=== PATIENT | female | born 1990 | race Hispanic/Latino ===

== ENCOUNTER 2023-05-25 17:04 | Emergency (ER) | payer SELFPAY ==
[2023-05-25] MEDS ORDERED: HYDROcodone/Acetaminophen 5/325 mg Tablet ONE (19:33)
[2023-05-25] MEDS ORDERED: Dexamethasone 4 MG TAB ONE (19:34)
[2023-05-25 19:40] LABS: Anion Gap 12 mmol/L (10-20); BUN (Urea Nitrogen) 9 mg/dL (7.0-18.7); Calc. Creatinine Clearance 0 mL/min (70-130); Calcium 8.8 mg/dL (7.8-10.44); Carbon Dioxide 22 mmol/L (22-29); Chloride 104 mmol/L (98-107); Estimated GFR 125; Glucose 180 mg/dL (70-105); Potassium 3.5 mmol/L (3.5-5.1); Sodium 134 mmol/L (136-145)
[2023-05-25 19:51] LABS: Bilirubin Neg (Negative); Blood, Urine 10 (Negative); Glucose, Urine (Dipstick) >=1000 mg/dL (Negative); Ketone, Urine Negative (Negative); Leukocyte 500 (Negative); Nitrite Positive (Negative); Protein, Urine (Dipstick) Negative (Neg-Trace); Specific Gravity, Urine 1.015 (1.005-1.030); Urobilinogen Normal mg/dL (Less than 2)
[2023-05-25 19:54] LABS: Clarity Slightly Cloudy (Clear)
[2023-05-25 20:04] LABS: CAUTI Indications for Culture Pregnancy; RBC/HPF 0-3 HPF (0-3); WBC/HPF 21-50 HPF (0-3)
[2023-05-25 20:05] LABS: Bacteria/HPF 3+ HPF (None Seen); Squamous Epithelial 0-3 HPF (0-3)
[2023-05-25 20:06] LABS: Urine Culture Reflex Yes Yes
[2023-05-25] MEDS ORDERED: Nitrofurantoin Monohyd/M-Cryst 100 MG CAP PO SCH (20:45)
== END 2023-05-25 20:57 | disposition home or self-care (01) ==
LOC: CSHERS 17:04
DX: O23.41 Unspecified infection of urinary tract in pregnancy, first trimester (principal); O99.891 Other specified diseases and conditions complicating pregnancy; M54.30 Sciatica, unspecified side; M79.671 Pain in right foot; M79.672 Pain in left foot; Z3A.12 12 weeks gestation of pregnancy
CPT/HCPCS: 36416; 80048; 81001; 87077; 87086; 87186; 99283; J8540

== ENCOUNTER 2023-11-10 05:15 | Inpatient (IN) | payer OTHER ==
[2023-11-09 11:33] LABS: Hematocrit 36.8 % (34.9-44.5); Hemoglobin 12.9 g/dL (12.0-15.5); Platelet Count 248 10x3/uL (150-450)
[2023-11-09 12:08] LABS: HBSAg Index 0.19 S/CO (0-0.99); Hep B Surf Ag Non-Reactive S/CO (NonReactive)
[2023-11-09 12:09] LABS: Syphilis Antibody Nonreactive (Nonreactive); Syphilis Antibody Index 0.05 S/CO (<1.00 Non-Reactive)
[2023-11-10 05:16] VITALS: BMI 32.9
[2023-11-10] MEDS ORDERED: Bicitra 30 ML UDCUP PO PRN (05:20)
[2023-11-10] MEDS ORDERED: Azithromycin 500 MG in Sodium Chloride 0.9% 250 ML 250 ML IVPB SCH (05:20)
[2023-11-10] MEDS ORDERED: hydrALAZINE 20 MG/ML VIAL SLOW IVP PRN ×2 (05:20→12:41)
[2023-11-10] MEDS ORDERED: Promethazine HCl 25 MG/ML VIAL IM PRN ×3 (05:20→12:41)
[2023-11-10] MEDS ORDERED: Methylergonovine 0.2 MG/ML VIAL IM PRN (05:20)
[2023-11-10] MEDS ORDERED: Carboprost 250 MCG/ML AMP IM PRN (05:20)
[2023-11-10] MEDS ORDERED: Lactated Ringer's 1,000 ML IV SCH (05:20)
[2023-11-10] MEDS ORDERED: Tranexamic Acid 1,000 MG/10 ML VIAL IVP PRN (05:20)
[2023-11-10] MEDS ORDERED: Ondansetron PF 4 MG/2 ML Vial IVP PRN ×3 (05:20→12:41)
[2023-11-10] MEDS ORDERED: Oxytocin 30 units/NS 500 ML 500 ML IV SCH (05:20)
[2023-11-10] MEDS ORDERED: Misoprostol 200 MCG TAB PR PRN (05:20)
[2023-11-10] MEDS ORDERED: Diphenoxylate HCl/Atropine Tablet PO PRN (05:20)
[2023-11-10] MEDS ORDERED: Famotidine/PF 20 mg/2ml Vial SLOW IVP PRN (05:20)
[2023-11-10] MEDS ORDERED: ePHEDrine Sulfate 50 MG/10 ML VIAL ONE (08:00)
[2023-11-10] MEDS: CEFAZOLIN 2 GM in Sodium Chloride 0.9% 100 ML IVPB SCH (08:11)
[2023-11-10] MEDS ORDERED: fentaNYL 50 mcg/mL 1 mL Vial SLOW IVP PRN (09:44)
[2023-11-10] MEDS ORDERED: Naloxone HCl 0.4 mg/ml Vial IVP PRN ×2 (09:44)
[2023-11-10] MEDS ORDERED: Ketorolac Tromethamine 30 MG (1 mL) VIAL IVP PRN (09:44)
[2023-11-10] MEDS ORDERED: Promethazine HCl 25 MG SUPP PR PRN (09:44)
[2023-11-10] MEDS ORDERED: diphenhydrAMINE 50 MG/ML VIAL IVP PRN (09:44)
[2023-11-10] MEDS ORDERED: Moisturizing Cream (Eucerin) 113 GM JAR TOP PRN (09:44)
[2023-11-10] MEDS ORDERED: Meperidine HCl/PF 25 MG (1 mL) VIAL SLOW IVP PRN (09:44)
[2023-11-10] MEDS ORDERED: Ketorolac Tromethamine 30 MG (1 mL) VIAL IVP SCH (09:45)
[2023-11-10] MEDS ORDERED: Communication Order-Pharmacy FS SCH (09:45)
[2023-11-10 11:52] LABS: Hematocrit 31.3 % (34.9-44.5); Hemoglobin 10.9 g/dL (12.0-15.5); Mean Corpuscular HGB CONC 34.8 g/dL (32.0-36.0); Mean Corpuscular Hemoglobin 28.6 pg (27.0-33.0); Mean Corpuscular Volume 82.2 fl (81.6-98.3); Mean Platelet Volume 11.1 fl (7.4-10.4); Platelet Count 209 10x3/uL (150-450); RBC Distribution Width 12.5 % (11.5-14.5); Red Blood Cell (RBC) Count 3.81 10x6/uL (3.90-5.03); White Blood Cell (WBC) Count 10.7 10x3/uL (3.5-10.5)
[2023-11-10] MEDS: Ondansetron PF 4 MG/2 ML Vial IVP PRN (11:53)
[2023-11-10] MEDS ORDERED: Lanolin Ointment 7 GM TUBE TOP PRN (12:41)
[2023-11-10] MEDS ORDERED: Bisacodyl 10 MG SUPP PR PRN (12:41)
[2023-11-10] MEDS: diphenhydrAMINE 25 MG CAP PO PRN (14:33)
[2023-11-10] MEDS: Ketorolac Tromethamine 30 MG (1 mL) VIAL IVP SCH (14:33)
[2023-11-10] MEDS: Morphine PF 10 MG/10 ML VIAL ONE (16:48)
[2023-11-10] MEDS: Dexamethasone 4 mg/ml Vial ONE (16:48)
[2023-11-10] MEDS: Ondansetron PF 4 MG/2 ML Vial ONE (16:48)
[2023-11-10] MEDS: Ketorolac Tromethamine 30 MG (1 mL) VIAL ONE ×2 (16:49)
[2023-11-10] MEDS: Phenylephrine 40 MG/NS 250 ML 250 ML ONE (16:49)
[2023-11-10] MEDS: Oxytocin 10 UNITS/ML VIAL ONE ×2 (16:49)
[2023-11-10] MEDS: Boostrix 0.5 ML (Tdap) VIAL (>/=7 yrs of age) IM ONE (16:50)
[2023-11-10] MEDS: metFORMIN 500 MG TAB PO SCH (16:57)
[2023-11-10] MEDS ORDERED: Dextrose 50% Abboject 50 ML SYRINGE SLOW IVP PRN (17:12)
[2023-11-10] MEDS ORDERED: Dextrose 5% in Water 1,000 ML IV PRN (17:12)
[2023-11-10] MEDS ORDERED: Glucagon 1 MG/ML KIT IM PRN (17:12)
[2023-11-10] MEDS: HumaLOG 300 UNITS/3 ML VIAL SC PRN (18:08)
[2023-11-10] MEDS: Ferrous Sulfate 325 MG TAB PO SCH (19:45)
[2023-11-10] MEDS: Lantus 1000 UNITS/10 ML VIAL SC SCH (19:54)
[2023-11-10] MEDS: Docusate 100 MG CAP PO SCH (19:54)
[2023-11-10] MEDS ORDERED: Meperidine HCl/PF 25 MG (1 mL) VIAL IM PRN (22:00)
[2023-11-11 05:13] LABS: Hematocrit 25.2 % (34.9-44.5); Hemoglobin 8.8 g/dL (12.0-15.5); Mean Corpuscular HGB CONC 34.9 g/dL (32.0-36.0); Mean Corpuscular Hemoglobin 28.5 pg (27.0-33.0); Mean Corpuscular Volume 81.6 fl (81.6-98.3); Mean Platelet Volume 10.7 fl (7.4-10.4); Platelet Count 194 10x3/uL (150-450); RBC Distribution Width 12.6 % (11.5-14.5); Red Blood Cell (RBC) Count 3.09 10x6/uL (3.90-5.03); White Blood Cell (WBC) Count 8.1 10x3/uL (3.5-10.5)
[2023-11-11] MEDS: Naloxone HCl 0.4 mg/ml Vial IV PRN (05:36)
[2023-11-11] MEDS: HYDROcodone/Acetaminophen 5/325 mg Tablet PO PRN (08:30)
[2023-11-11] MEDS: metFORMIN 500 MG TAB PO SCH (08:30)
[2023-11-11] MEDS: Simethicone Chewable 80 MG TAB PO PRN (08:30)
[2023-11-11] MEDS: Prenatal Vitamin 1 TAB PO SCH (08:30)
[2023-11-11] MEDS: Ibuprofen 800 MG TAB PO SCH (14:19)
[2023-11-12] MEDS: HYDROcodone/Acetaminophen 5/325 mg Tablet PO PRN (02:06)
[2023-11-13 07:51] VITALS: BP 118/69; TEMP 98.4
== END 2023-11-13 16:35 | disposition home or self-care (01) | DRG 788 ==
LOC: CSHLD 05:15 → CSHPP 12:55
PROVIDERS: ADMIT Family Medicine; ATTEND Family Medicine
PROC: 10D00Z1 Extraction of Products of Conception, Low, Open Approach (ICD-10-PCS; principal; 2023-11-10)
PROC: 3E033XZ Introduction of Vasopressor into Peripheral Vein, Percutaneous Approach (ICD-10-PCS; 2023-11-10)
DX: O34.211 Maternal care for low transverse scar from previous cesarean delivery (principal); O24.424 Gestational diabetes mellitus in childbirth, insulin controlled; Z3A.38 38 weeks gestation of pregnancy; Z37.0 Single live birth
CPT/HCPCS: 36415; 36416; 51702; 85014; 85018; 85027; 85049; 86780; 86850; 86900; 86901; 87340; J1100; J1815; J1885; J2274; J2310; J2405; J2590; J3490

== ENCOUNTER 2025-06-02 19:24 | Emergency (ER) | payer OTHER, SELFPAY ==
[2025-06-02] MEDS ORDERED: Boostrix 0.5 ML (Tdap) VIAL (>/=7 yrs of age) ONE (20:09)
[2025-06-02] MEDS ORDERED: Lidocaine 1% (PF) 30 ML VIAL ONE (20:09)
== END 2025-06-02 20:39 | disposition home or self-care (01) ==
LOC: CSHERS 19:24
DX: S61.412A Laceration without foreign body of left hand, initial encounter (principal); E11.9 Type 2 diabetes mellitus without complications; W26.0XXA Contact with knife, initial encounter; Y93.89 Activity, other specified; Y92.009 Unspecified place in unspecified non-institutional (private) residence as the place of occurrence of the external cause; Z23 Encounter for immunization; Z79.84 Long term (current) use of oral hypoglycemic drugs
CPT/HCPCS: 12001; 90471; 90715